=== PATIENT | male | born 1935 | race Caucasian/White ===

== ENCOUNTER → 2017-12-28 | Outpatient (CLI) | payer MEDICARE, OTHER ==
[~2017-12-28] MED LIST: ASP325 PO; ASPI-1471 PO; ASPI-715 PO; AZIT-1 PO; CHOL100058 PO; CIT20 PO; DOCU-299 PO; ERGO500014 PO; ESCI20TA8 PO; KET10 PO; LOR5 PO; LOSA25TA50 PO; MELO-207 PO; MELOXICAM; MET500 PO; METH4TAB66 PO; OMEP-218 PO; PER PO; PHENA200 PO; POTA-35 PO; PSEU30SY PO; SIMV-44 PO; SIMVASTATIN; TERA10CA42 PO; TERA10CA44 PO; TOBR5DRO OP; UBID10CA7 PO; URS300 PO; VIT1CAPS PO; VIT500TA6 PO; VITAMIN B; VITAMIN E; ZOLP-360 PO; [UNRECOGNIZED DRUG - REMARK]; [UNRECOGNIZED DRUG - REMARK]; vitamins
[2017-12-28 13:19] LABS: INR 1.51
== END ==
LOC: LAB 12:09
PROVIDERS: ATTEND Physician Assistant Surgical
DX: Z96.642 Presence of left artificial hip joint (principal); Z79.01 Long term (current) use of anticoagulants
CPT/HCPCS: 36415; 85610

== ENCOUNTER → 2017-12-31 | Outpatient (CLI) | payer MEDICARE, OTHER ==
[2017-12-31 09:28] LABS: INR 1.42
== END ==
LOC: LAB 08:19
PROVIDERS: ATTEND Physician Assistant Surgical
DX: Z79.01 Long term (current) use of anticoagulants (principal); Z96.642 Presence of left artificial hip joint
CPT/HCPCS: 36415; 85610

== ENCOUNTER 2018-09-28 14:47 | Emergency (ER) | payer MEDICARE, OTHER ==
[~2018-09-28 14:47] MED LIST changes: -LOSA25TA50 PO; +LOSA25TA52 PO
[2018-09-28] MEDS ORDERED: AMLO-111 PO (15:04)
[2018-09-28] MEDS ORDERED: NS(*) 0.9% 1000 ML BAG 1,000 ML IV ONE (15:07)
[2018-09-28] MEDS ORDERED: IOPAMIDOL 76% 100 ML INFUS BTL 0 ML ONE (15:30)
[2018-09-28 15:38] LABS: PLATELET COUNT, AUTOMATED 158 K/uL (150-450)
[2018-09-28 15:48] LABS: INR 1.08
--- NOTE | 2018-09-28 16:23 | RADIOLOGY IMAGING REPORT ---
FACILITY: [facility] [place] PATIENT NAME: Garcia Stevens : 1935 MR: [id number] V: [id number] EXAM DATE: ORDERING PHYSICIAN: MICHEAL MAURICIO TECHNOLOGIST: Location: [facility] - [place] Patient: Garcia Stevens : 1935 Visit/Account:[id number] Date of Sevice: 09/28/2018 ABDOMEN/PELVIS W/O CONTRAST HISTORY: HEMATURIA TECHNIQUE: Axial images acquired through the abdomen/pelvis. Coronal and sagittal reformatting also performed. No IV contrast administered.Dose Lowering Technique One of the following dose optimization techniques was utilized in the performance of this exam: Autom ated exposure control; adjustment of the mA and/or kV according to the patient's size; or use of an i terative reconstruction technique. Specific details can be referenced in the facility's radiology C T exam operational policy. COMPARISON: January 04, 2012 FINDINGS: Visualized lung bases: Extensive coronary artery calcifications Hepatobiliary: There are postsurgical changes from a cholecystectomy Spleen: Negative. Adrenals: Negative. Pancreas: Negative. Kidneys ureters and bladder: There is cortical scarring of both kidneys. there is a 6 x 3 mm calcification in the right renal pelvis although no evidence of hydronephrosis o r hydroureter. There is however a 4 x 2 mm calculus in the distal left ureter just proximal to the l eft UVJ area There is a 2 to 3 mm calcification in mid pole calyx of the left kidney a 1 mm punctate calcification in the lower pole calyx of the left kidney there is moderate to severe bladder wall thickening There are numerous artifacts from bilateral hip arthroplasties although a tiny punctate calcification is seen along the posterior aspect left side the bladder could conceivably be a calcification within the bladder wall or a recently passed calculus . Genitalia: Prostate gland is mild to moderately enlarged depending upon the floor the bladder. GI: There Is mild diverticulosis left-sided colon although no CT evidence of acute diverticulitis Vessels/spaces/nodes: There are mild calcifications in the abdominal aorta and branch vessels. Bones/soft tissues: There bilateral hip arthroplasties producing numerous artifacts. There is scoli osis and extensive spondylotic changes in the visualized thoracolumbar spine. There are sclerotic ch anges seen at the SI joints bilaterally although appears similar to the prior study Additional findings: None pertinent. IMPRESSION: There is cortical scarring of both kidneys. There is a 6 x 3 mm calcification in the right renal pelvis although no evidence of hydronephrosis There is a 4 x 2 mm calculus in the distal left ureter just proximal to the left UVJ although no evid ence of left hydronephrosis or hydroureter Nonobstructing nephrolith lithiasis in the left renal collecting system Is a punctate calcination along the posterior left-sided the bladder which could conceivably be a reta cination within the bladder wall or recently passed calculus. There are numerous artifacts in the pe lvis from bilateral hip arthroplasties Additional chronic findings as described Report Dictated By: Shannon Tran MD at 09/28/2018 3:59 PM Report E-Signed By: Shannon Tran MD at 09/28/2018 4:18 PM WSN:[id number]
[2018-09-28 16:30] VITALS: BP 142/81
[2018-09-28] MEDS ORDERED: SULF-198 PO (17:18)
--- NOTE | 2018-09-28 17:18 | ER Report ---
History and Physical Time Seen By MD: 15:45 Hx. of Stated Complaint: BLOOD IN URINE FOR 7-10 DAYS. DENIES PAIN. HPI/ROS CHIEF COMPLAINT: Hematuria painless HISTORY OF PRESENT ILLNESS: 83-year-old male history of kidney stones comes to the emergency room with 2 episodes of bright red blood in painless hematuria patient's he defers episode happened 3 days prior to presentation was urinating and noticed some significant amount of bright red blood per within the urination no pain associated with no flank pain or tenderness patient has had a history of kidney stones no significant flank pain said this felt like that over the next 2 or 3 days a urination became back to normal and clear however today he another episode including bright red blood in painless. Patient denies any nausea vomiting abdominal pain of any kind chest pain shortness of breath or additional complaints noted REVIEW OF SYSTEMS: Respiratory: No cough, no dyspnea. Cardiovascular: No chest pain, no palpitations. Gastrointestinal: No vomiting, no abdominal pain. Musculoskeletal: No back pain. Remainder of the 14 system rev: Yes Allergies: Coded Allergies: No Known Drug Allergies (Verified , 09/28/18) Home Meds Reported Medications Amlodipine Besylate (AMLODIPINE BESYLATE) 5 Mg Tablet, 2 TAB PO QDAY, TAB 09/28/18 Potassium Citrate (POTASSIUM CITRATE) 10 Meq Tablet.er, 2 TAB PO BID 09/11/15 Cholecalciferol (Vitamin D3) (VITAMIN D) 1,000 Unit Capsule, 2 CAP PO QDAY, CAPSULE 09/11/15 Aspirin (ASPIR 81) 81 Mg Tablet.dr, 1 TAB PO QDAY, TAB 09/11/15 Losartan Potassium (LOSARTAN POTASSIUM) 25 Mg Tablet, 1 TAB PO QDAY 09/11/15 Terazosin Hcl (TERAZOSIN HCL) 10 Mg Capsule, 1 CAP PO QHS, CAPSULE 09/11/15 Discontinued Reported Medications Meloxicam (MELOXICAM) 15 Mg Tablet, 1 TAB PO QDAY 09/11/15 Discontinued Scripts Escitalopram Oxalate (ESCITALOPRAM OXALATE) 20 Mg Tablet, 1 TAB PO QDAY, #90 TAB 3 Refills Prov:ROSSY LASSITER MD 01/21/17 Reviewed Nurses Notes: Yes Old Medical Records Reviewed: Yes Hx Smoking: No Smoking Status: Former Smoker Exposure to Second Hand Smoke?: No Hx Substance Use Disorder: No Hx Alcohol Use: No Constitutional Vital Sign - Last 24 Hours 09/28/18 14:55 Temp 97.8 Pulse 85 Resp 20 B/P (MAP) 148/83 Pulse Ox 92 O2 Delivery Room Air Physical Exam General Appearance: The patient is alert, has no immediate need for airway protection and no current signs of toxicity. [ ] Eyes: Pupils equal and round no injection. Respiratory: Chest is non tender, lungs are clear to auscultation. Cardiac: regular rate and rhythm [ ] Gastrointestinal: Abdomen is soft and non tender, no masses, bowel sounds normal. Musculoskeletal: Neck: Neck is supple and non tender. Extremities have full range of motion and are non tender. Skin: No rashes or lesions. [ ] DIFFERENTIAL DIAGNOSIS: After history and physical exam differential diagnosis was considered for pain this hematuria or painless hematuria bladder CA renal colic hemorrhagic cystitis Medical Decision Making Data Points Result Diagram: 09/28/18 1522 09/28/18 1522 Laboratory Hematology Test 09/28/18 14:55 09/28/18 15:22 Urine Color Brown Urine Clarity Turbid Urine pH 5.0 pH (4.8-9.5) Urine Specific [place] 1.016 Urine Protein 100 mg/dL (NEGATIVE) Urine Glucose (UA) Negative mg/dL (NEGATIVE) Urine Ketones Negative mg/dL (NEGATIVE) Urine Blood Large (NEGATIVE) Urine Nitrite Negative (NEGATIVE) Urine Bilirubin Negative (NEGATIVE) Urine Urobilinogen Negative mg/dL (0.2-1.9) Urine Leukocyte Esterase Moderate (NEGATIVE) Urine RBC 4344 /HPF (0-2/HPF) Urine WBC 3036 /HPF (0-5/HPF) Urine WBC Clumps Many /HPF Urine Squamous Epithelial Cells None /LPF (</=FEW) Urine Bacteria Many /HPF (NONE-FEW) Urine Mucus None /HPF (NONE-FEW) Red Blood Count 4.63 M/uL (4.00-5.60) Mean Corpuscular Volume 84.3 fL (80.0-96.0) Mean Corpuscular Hemoglobin 28.6 pg (26.0-33.0) Mean Corpuscular Hemoglobin Concent 33.9 g/dL (32.0-36.0) Red Cell Distribution Width 16.4 % (11.5-14.5) Mean Platelet Volume 8.3 fL (7.2-11.1) Neutrophils (%) (Auto) 61.9 % (39.4-72.5) Lymphocytes (%) (Auto) 23.4 % (17.6-49.6) Monocytes (%) (Auto) 9.0 % (4.1-12.4) Eosinophils (%) (Auto) 5.1 % (0.4-6.7) Basophils (%) (Auto) 0.6 % (0.3-1.4) Nucleated RBC Relative Count (auto) 0.0 /100WBC Neutrophils # (Auto) 3.4 K/uL (2.0-7.4) Lymphocytes # (Auto) 1.3 K/uL (1.3-3.6) Monocytes # (Auto) 0.5 K/uL (0.3-1.0) Eosinophils # (Auto) 0.3 K/uL (0.0-0.5) Basophils # (Auto) 0.0 K/uL (0.0-0.1) Nucleated RBC Absolute Count (auto) 0.00 K/uL Prothrombin Time 14.1 seconds (12.0-14.4) Prothromb Time International Ratio 1.08 Activated Partial Thromboplast Time 28 seconds (23-35) Sodium Level 139 mmol/L (137-145) Potassium Level 4.6 mmol/L (3.5-5.0) Chloride Level 106 mmol/L (98-107) Carbon Dioxide Level 25 mmol/L (22-30) Blood Urea Nitrogen 18 mg/dl (9-21) Creatinine 1.60 mg/dl (0.66-1.25) Glomerular Filtration Rate Calc 41.5 Random Glucose 128 mg/dl (75-110) Calcium Level 9.2 mg/dl (8.4-10.2) Total Bilirubin 0.3 mg/dl (0.2-1.3) Aspartate Amino Transf (AST/SGOT) 33 U/L (0-35) Alanine Aminotransferase (ALT/SGPT) 39 U/L (0-56) Alkaline Phosphatase 86 U/L (0-126) Total Protein 7.0 g/dl (6.3-8.2) Albumin 3.8 g/dl (3.5-5.0) Chemistry Test 09/28/18 14:55 09/28/18 15:22 Urine Color Brown Urine Clarity Turbid Urine pH 5.0 pH (4.8-9.5) Urine Specific [place] 1.016 Urine Protein 100 mg/dL (NEGATIVE) Urine Glucose (UA) Negative mg/dL (NEGATIVE) Urine Ketones Negative mg/dL (NEGATIVE) Urine Blood Large (NEGATIVE) Urine Nitrite Negative (NEGATIVE) Urine Bilirubin Negative (NEGATIVE) Urine Urobilinogen Negative mg/dL (0.2-1.9) Urine Leukocyte Esterase Moderate (NEGATIVE) Urine RBC 4344 /HPF (0-2/HPF) Urine WBC 3036 /HPF (0-5/HPF) Urine WBC Clumps Many /HPF Urine Squamous Epithelial Cells None /LPF (</=FEW) Urine Bacteria Many /HPF (NONE-FEW) Urine Mucus None /HPF (NONE-FEW) White Blood Count 5.5 k/uL (4.5-11.0) Red Blood Count 4.63 M/uL (4.00-5.60) Hemoglobin 13.2 g/dL (14.0-18.0) Hematocrit 39.0 % (42.0-52.0) Mean Corpuscular Volume 84.3 fL (80.0-96.0) Mean Corpuscular Hemoglobin 28.6 pg (26.0-33.0) Mean Corpuscular Hemoglobin Concent 33.9 g/dL (32.0-36.0) Red Cell Distribution Width 16.4 % (11.5-14.5) Platelet Count 158 K/uL (150-450) Mean Platelet Volume 8.3 fL (7.2-11.1) Neutrophils (%) (Auto) 61.9 % (39.4-72.5) Lymphocytes (%) (Auto) 23.4 % (17.6-49.6) Monocytes (%) (Auto) 9.0 % (4.1-12.4) Eosinophils (%) (Auto) 5.1 % (0.4-6.7) Basophils (%) (Auto) 0.6 % (0.3-1.4) Nucleated RBC Relative Count (auto) 0.0 /100WBC Neutrophils # (Auto) 3.4 K/uL (2.0-7.4) Lymphocytes # (Auto) 1.3 K/uL (1.3-3.6) Monocytes # (Auto) 0.5 K/uL (0.3-1.0) Eosinophils # (Auto) 0.3 K/uL (0.0-0.5) Basophils # (Auto) 0.0 K/uL (0.0-0.1) Nucleated RBC Absolute Count (auto) 0.00 K/uL Prothrombin Time 14.1 seconds (12.0-14.4) Prothromb Time International Ratio 1.08 Activated Partial Thromboplast Time 28 seconds (23-35) Glomerular Filtration Rate Calc 41.5 Calcium Level 9.2 mg/dl (8.4-10.2) Total Bilirubin 0.3 mg/dl (0.2-1.3) Aspartate Amino Transf (AST/SGOT) 33 U/L (0-35) Alanine Aminotransferase (ALT/SGPT) 39 U/L (0-56) Alkaline Phosphatase 86 U/L (0-126) Total Protein 7.0 g/dl (6.3-8.2) Albumin 3.8 g/dl (3.5-5.0) Coagulation Test 09/28/18 15:22 Prothrombin Time 14.1 seconds Prothromb Time International Ratio 1.08 Activated Partial Thromboplast Time 28 seconds Urinalysis Test 09/28/18 14:55 Urine Color Brown Urine Clarity Turbid Urine pH 5.0 pH (4.8-9.5) Urine Specific [place] 1.016 Urine Protein 100 mg/dL (NEGATIVE) Urine Glucose (UA) Negative mg/dL (NEGATIVE) Urine Ketones Negative mg/dL (NEGATIVE) Urine Blood Large (NEGATIVE) Urine Nitrite Negative (NEGATIVE) Urine Bilirubin Negative (NEGATIVE) Urine Urobilinogen Negative mg/dL (0.2-1.9) Urine Leukocyte Esterase Moderate (NEGATIVE) Urine RBC 4344 /HPF (0-2/HPF) Urine WBC 3036 /HPF (0-5/HPF) Urine WBC Clumps Many /HPF Urine Squamous Epithelial Cells None /LPF (</=FEW) Urine Bacteria Many /HPF (NONE-FEW) Urine Mucus None /HPF (NONE-FEW) ED Course/Re-evaluation ED Course ED clinical course medical decision making 83-year-old male came in with 2 episodes in the last 4 days of painless hematuria CT scan does show significant bladder wall thickening concerning for probable CVA versus irritation and cystitis patient did add no episodes of hematuria here ovary did have urination showing bright red blood but inconsistent with his prior episodes significantly less prevalent spoke to Dr. Weinberg our urologist CT scan results were confirmed and evaluated he wants him placed on antibiotics with close follow-up and he'll see patient at bedside Decision to Disposition Date: Sep 28, 2018 Decision to Disposition Time: 17:17 Depart Departure Latest Vital Signs Vital Signs Date Time Temp Pulse Resp B/P (MAP) Pulse Ox O2 Delivery O2 Flow Rate FiO2 09/28/18 14:55 97.8 85 20 148/83 92 Room Air Impression: Primary Impression: Hemorrhagic cystitis Condition: Improved Disposition: HOME OR SELF-CARE Referrals: JA WEINBERG MD 5 Days New Scripts Sulfamethoxazole/Trimet 800-160 Mg Tab (BACTRIM DS TABLET) 1 Each Tablet 1 TAB PO Q12H, #14 MG 0 Refills TAKE ONE TABLET BY MOUTH EVERY TWELVE HOURS Prov: MICHEAL MAURICIO MD 09/28/18 Patient Instructions: Hematuria (ED) MICHEAL MAURICIO MD Sep 28, 2018 17:18
== END 2018-09-28 17:31 | disposition home or self-care (01) ==
LOC: ER 15:22
DX: N30.81 Other cystitis with hematuria (principal); B95.2 Enterococcus as the cause of diseases classified elsewhere; B96.89 Other specified bacterial agents as the cause of diseases classified elsewhere
CPT/HCPCS: 74176; 81001; 85025; 85610; 85730; 87088; 96360; 96361; 99284; J7030; 82040; 82247; 82310; 82374; 82435; 82565; 82947; 84075; 84132; 84155; 84295; 84450; 84460; 84520; 87077; 87186; Q9967

== ENCOUNTER 2018-12-19 01:45 | Day surgery (SDC) | payer MEDICARE, OTHER ==
[2018-12-15 14:55] LABS: PLATELET COUNT, AUTOMATED 171 K/uL (150-450)
--- NOTE | 2018-12-16 17:13 | HISTORY AND PHYSICAL ---
DATE OF ADMISSION: December 19, 2018 CHIEF COMPLAINT Kidney stones with history of hematuria and UTI. HISTORY OF PRESENT ILLNESS Patient is an 83-year-old white male with a remote history of kidney stones and BPH who presented to the Emergency Room in early September after an episode of gross, painless hematuria. He was diagnosed with cystitis after a urine culture revealed greater than 100,000 enterococcus. He was subsequently treated with Macrobid after a week of Cipro. He was seen in the Urology Clinic on the 29 of September. At that time, his urinalysis revealed a large amount of blood. His CAT which was performed without intravenous contrast was reviewed. He had a 6 x 4 mm right renal pelvis stone in addition to having a 3 x 2 mm left mid pole stone and a 4 x 2 mm stone in the distal left ureter. He had some mild hydronephrosis on the left side and a few punctate calcifications in the bladder. At that time, results were discussed, and it was recommended he undergo left ureteroscopy with possible stent placement, followed by ureteroscopy and/or extracorporeal shock wave lithotripsy of his upper pole stones. The patient has recently completed his preoperative medical optimization at the [facility] and now being scheduled for surgery. We will obtain the preoperative low-dose CT scan to evaluate his current stone status and proceed with cystoscopy, left ureteroscopy, and/or extracorporeal shock wave lithotripsy as indicated. PAST MEDICAL HISTORY 1. Hypertension. 2. Hypercholesterolemia. 3. Questionable history of coronary artery disease. 4. COPD. 5. Prediabetes. 6. Glaucoma. 7. Hard of hearing. 8. Kidney and bladder stones. 9. BPH with history of elevated PSA. Last biopsy was 2009 with a volume of 39 cc. PAST SURGICAL HISTORY 1. Cystoscopy with evacuation of small bladder stones and transurethral resection of median lobe in 2003. 2. Cystoscopy with evacuation of bladder clots with a TURP in 2007. 3. Office cystoscopy 2009, which revealed some mild regrowth of his lateral lobes. 4. Bilateral cataracts. 5. Right inguinal hernia. 6. Bilateral total hip replacement. SOCIAL HISTORY Patient lives in [place], [place]. He is . He denies current tobacco use. ALLERGIES LISINOPRIL. CURRENT MEDICINES 1. Amlodipine. 2. Aspirin. 3. Lexapro. 4. Isosorbide p.r.n. 5. Losartan. 6. Flomax. 7. Lipitor. REVIEW OF SYSTEMS Patient denies chest pain, shortness of breath, productive cough, nausea, vomiting, fever, chills, headaches, or a bleeding disorder. PHYSICAL EXAMINATION GENERAL: Patient is a well-developed, well-nourished white male in no acute distress. HEENT: Normocephalic, atraumatic. CHEST: Clear to auscultation bilaterally. CARDIOVASCULAR: Regular rate and rhythm. ABDOMINAL: Soft, nontender. No masses are palpated. GENITOURINARY: Deferred to the OR. EXTREMITIES: Without clubbing, cyanosis, or edema. NEUROLOGIC: Nonfocal. IMPRESSION An 83-year-old white male with history of gross hematuria and urinary tract infection in early September, found to have bilateral kidney stones and left ureteral calculus. CT [facility] this morning shows no change in renal stones, however I am unable to evaluate distal left ureteral sotne secondary to artifact from bilateral THR's. PLAN Will perform anesthetic cystoscopy, followed by left ureteroscopy and/or extracorporeal shock wave lithotripsy as indicated. FRANKIED
[~2018-12-19] VITALS: Ht 170.2 cm; Wt 78.5 kg
[~2018-12-19 01:45] MED LIST changes: +AMLO-125 PO; +ATOR20TA22 PO; +ESCI20TA38 PO; +ISOS30TA71 PO; +LOSA100T75 PO; -LOSA25TA52 PO; +LOSA25TA57 PO; +SULF-198 PO; +TAMS0.4C70 PO
[2018-12-19 06:00] VITALS: BP 125/80
[2018-12-19] MEDS ORDERED: LIDOCAINE/SOD BICARB 8.4% SYR ID ONE (06:30)
[2018-12-19] MEDS ORDERED: ceFAZolin(*) 1 GM VIAL 1 GM in NS(*) 0.9% 100 ML ADDVANT BAG 100 ML IVPB ONE (06:30)
[2018-12-19] MEDS ORDERED: FAMOTIDINE 20 MG TAB PO ONE (06:30)
[2018-12-19] MEDS ORDERED: MIDAZOLAM 2 MG/2 ML VIAL IVP PRN (06:30)
[2018-12-19] MEDS ORDERED: NORMOSOL R SOLN(*) 1000 ML BAG 1,000 ML IV PRN (06:30)
--- NOTE | 2018-12-19 06:38 | EKG ---
FACILITY: [facility] PATIENT NAME: MARIA D BARKSDALE : [id number] MR: [id number] V: [id number] EXAM DATE: ORDERING PHYSICIAN: NAOMI DANIELS TECHNOLOGIST: BECKI Test Reason : PRE-OP Blood Pressure : / mmHG Vent. Rate : 060 BPM Atrial Rate : 060 BPM P-R Int : 254 ms QRS Dur : 086 ms QT Int : 414 ms P-R-T Axes : 097 053 062 degrees QTc Int : 414 ms Sinus rhythm with marked sinus arrhythmia with 1st degree AV block Otherwise normal ECG No previous ECGs available Confirmed by Kb Nelson ([id number]) on 12/19/2018 6:46:12 AM Referred By: Confirmed By:Kb Boyer
[2018-12-19] MEDS ORDERED: fentaNYL CITR 100 MCG/2 ML AMP ONE ×2 (07:17→08:42)
[2018-12-19] MEDS ORDERED: LIDOCAINE 2% IV 100 MG/5ML SYR ONE (07:18)
[2018-12-19] MEDS ORDERED: PROPOFOL EMUL(*) 10MG/ML 20 ML 60 ML ONE (07:19)
[2018-12-19] MEDS ORDERED: DEXAMETHASONE SOD 4 MG/ML VIAL ONE (07:41)
[2018-12-19] MEDS ORDERED: ONDANSETRON 4 MG/2 ML VIAL ONE (07:42)
[2018-12-19] MEDS ORDERED: IOPAMIDOL-200 50 ML VIAL IS ONE (07:53)
[2018-12-19] MEDS ORDERED: BELLADONNA ALK/OPIUM 60MG SUPP PR ONE (07:53)
--- NOTE | 2018-12-19 08:50 | RADIOLOGY IMAGING REPORT ---
FACILITY: [facility] - [place] PATIENT NAME: Garcia Stevens : 1935 MR: [id number] V: [id number] EXAM DATE: ORDERING PHYSICIAN: JA WEINBERG TECHNOLOGIST: Location: [facility] [place] Patient: Garcia Stevens : 1935 Visit/Account:[id number] Date of Sevice: 12/16/2018 ABDOMEN PELVIS ESWL CYSTO W/O HISTORY: Kidney stones TECHNIQUE: Axial images were obtained through the abdomen and pelvis without intravenous contrast . One of the following dose optimization techniques was utilized in the performance of this exam: autom ated exposure control; adjustment of the mA and/or kv according to patient size; or use of iterative reconstruction technique. Specific details can be referenced in the facility's radiology CT exam oper ational policy. CONTRAST: None COMPARISON: CT abdomen/pelvis without contrast 09/28/2018 FINDINGS: Visualized lung bases: Negative. Hepatobiliary: Cholecystectomy.. Spleen: Negative. Adrenals: Negative. Pancreas: Negative. Kidneys/ureters/bladder: Stable 5 x 2 mm distal left ureteral calculus near the vesicoureteral junct ion. No significant hydronephrosis/hydroureter. Stable 2 mm nonobstructing left midpole renal calcu roberta. Stable 7 x 3 mm nonobstructing right lower pole calculus. Bilateral renal scarring. Bowel/peritoneum/mesentery: Colonic diverticulosis without acute inflammatory change. Vessels: Negative. Lymph nodes: Negative. Pelvic genitourinary: Negative. Bones/body wall: Bilateral TYREE with artifact. Moderate-severe degenerative changes throughout the l umbar spine. Other findings: None significant IMPRESSION: 1. Stable 5 x 2 mm distal left ureteral calculus near the vesicoureteral junction. No significant h ydronephrosis/hydroureter. 2. Otherwise stable nonobstructing bilateral renal calculi outlined above. Report Dictated By: Beau Loo MD at 12/19/2018 8:35 AM Report E-Signed By: Beau Loo MD at 12/19/2018 8:46 AM WSN:[id number]
[2018-12-19] MEDS ORDERED: DOCU-416 PO (10:07)
[2018-12-19] MEDS ORDERED: HYDR-653 PO (10:08)
[2018-12-19] MEDS ORDERED: OXYB10TA21 PO (10:10)
[2018-12-19] MEDS ORDERED: PHEN200T32 PO (10:10)
[2018-12-19 10:37] VITALS: BP 126/66
[2018-12-19 10:45] VITALS: BP 120/75
[2018-12-19 11:15] VITALS: BP 113/73
[2018-12-19 11:21] VITALS: BP 119/62
[2018-12-19 11:23] VITALS: BP 126/69
--- NOTE | 2018-12-19 11:33 | OPERATIVE REPORT 1 ---
EVENT DATE: December 19, 2018 SURGEON: Arvin Grey MD ANESTHESIOLOGIST: Jose M Perez MD ANESTHESIA: General. PREOPERATIVE DIAGNOSIS 1. Left distal ureteral calculus, measuring 6 x 3 mm. 2. Left mid pole renal calculus, measuring 3 x 2 mm. POSTOPERATIVE DIAGNOSIS 1. Left distal ureteral calculus, measuring 6 x 3 mm. 2. Left mid pole renal calculus, measuring 3 x 2 mm. PROCEDURE PERFORMED 1. Cystoscopy. 2. Left retrograde pyelograms. 3. Left semi-rigid ureteroscopy with laser fragmentation and grasping of fragments of the 6 x 3 mm distal ureteral stone. 4. Left flexible ureteroscopy with grasping and removal of a 3 x 2 mid pole stone. 5. Left internal double- J ureteral stent placement. ESTIMATED BLOOD LOSS 10 cc. IV FLUIDS Crystalloids. DRAINS 6-Peruvian x 26 cm Contour stent on left. PATHOLOGY Left mid pole calculus for permanent analysis. COMPLICATIONS None. FINDINGS 1. 6 x 3 mm distal stone, approximately 5 cm of proximal ureteral orifice. 2. Left mid pole 3 x 2 mm stone in a mid pole calyx with a moderately stenotic infundibulum. CONDITION The patient was taken to the recovery room awake and in stable condition. STATEMENT OF MEDICAL NECESSITY The patient is an 83-year old white male with intermittent hematuria who was found to have kidney stones by CT scan performed at the end of September. He was scheduled for the operating room after he was evaluated for preoperative optimization. CT scan today revealed an 8 x 6 x 4 mm stone on the right mid pole. In addition, he had a 3 x 2 mm stone in the left mid pole. He has a distal left ureteral stone that could not be identified today on his preoperative CT secondary to artifact from his bilateral hip replacement but he denies definitively passing the stone. The plan will be to perform anesthetic cystoscopy retrograde on the left side followed by treatment. DESCRIPTION OF OPERATION PERFORMED The patient was brought to the operating room and after general anesthetic was obtained, he was placed in the dorsal lithotomy position and prepped and draped in the usual sterile manner. Anesthetic cystoscopy was performed with the 21- Peruvian rigid sheath and both 30-degree and 70-degree lens. His bladder neck was mildly elevated and he had mildly obstructing lateral lobes. Upon entering his bladder, he had a 1+ trabeculated bladder. He had slit-like ureteral orifices, both effluxing clear urine. His bladder neck was mildly friable, mainly on the right side. The remainder of the bladder appeared normal. At this point, a left retrograde pyelogram was performed by using an 8-Peruvian cone-tip catheter and injecting 7 cc of contrast material in a retrograde manner under fluoroscopic imaging. By my intraoperative interpretation, he appeared to have a normal retrograde pyelogram on the left side except for questionable filling defect in the distal ureter, approximately 4-5 cm above the ureteral orifice. At this point, the left ureteral orifice was cannulated with a 6-Peruvian open-end access catheter and this was used to place a 0.35 sensor wire, which was advanced to the upper pole of lea by fluoroscopy. The access catheter was removed and this wire was used to place a 8/10 dilating system. A single wire was placed alongside the first wire inside the 10 sheath. The 10 sheath was removed. One wire was secured to the drape as a safety wire and the next wire was back-loaded into the Hearn semi-rigid scope. Semi-rigid ureteroscopy was performed over this wire under direct vision. A regular surface, dark yellow to brown stone was encountered approximately 5 cm above the ureteral orifice measuring 6 x 3 mm. At this point, the Holmium laser fiber was introduced and in situ laser lithotripsy was performed. The stone impregnated fairly easily over the course of approximately 10-15 minutes. There were two to three small remaining fragments measuring approximately 1 x 2 mm. These were sequentially grasped with the grasping forceps and brought out to the bladder, where they were disengaged. At this point, the scope was reintroduced and advanced to just above the vessels. No other fragments could be identified down to the distal ureter. At this point, a 0.35 wire was reintroduced into the lumen of the ureteroscope and advanced up to the upper pole of calyx to be used as a working wire. The semi-rigid ureteroscope was removed and this was replaced with a TuckerNucker Hearn flexible ureteroscope, which was advanced over the wire up the ureter to the upper pole of calyx. The working wire was removed. Flexible ureteroscopy of the left kidney was performed. The upper pole of calyx appeared normal without evidence of stones. In the mid pole, there was a moderately stenotic infundibulum and at the bottom of this was the previously seen stone on his prior x-rays. It was approximately 3 x 2 mm in size. At this point, the 8- Peruvian Otf basket was used to engage the stone. It was removed intact and gently brought down the ureter into the bladder and out the urethra. It was then collected and sent for analysis. Following this, the safety wire was back- loaded into the cystoscope and this was used to place a 6-Peruvian x 26 cm Contour stent on the left side. The wire was removed. He was noted to have good curling of the upper pole of calyx and good curling of the bladder by direct vision. The patient's bladder was drained through the cystoscopic sheath. A B and O suppository was given at the conclusion of the case. He was awakened in the operating room and taken to the recovery area in stable condition. PLAN We will allow the patient to be discharged home today on [place], Colace, Ditropan XL and Pyridium. He is to continue his Flomax. We will have him return to the operating room in approximately ten days to two weeks to remove his stent and treat his right stone. KIERSTEN
--- NOTE | 2018-12-19 13:49 | RADIOLOGY IMAGING REPORT ---
FACILITY: [facility] - [place], [place] PATIENT NAME: Garcia Stevens : 1935 MR: [id number] V: [id number] EXAM DATE: ORDERING PHYSICIAN: JA WEINBERG TECHNOLOGIST: Location: [facility] Patient: Garcia Stevens : 1935 Visit/Account:[id number] Date of Sevice: 12/19/2018 RETROGRADE PYELOGRAM HISTORY: STONES, HEMATURIA COMPARISON: None. FINDINGS: Serial fluoroscopic imaging demonstrates a left retrograde ureterogram followed by placement of a lef t ureteral stent which appears well-positioned within the known nephrolithiasis is not well visualize d Fluoroscopy time: 49 seconds Dose: DAP: 39.5 mGy-m2 IMPRESSION: Fluoroscopic guidance of a left ureteral stent. The known distal left ureteral stone in bilateral ne phrolithiasis is not well visualized fluoroscopically Report Dictated By: Blade De La Rosa MD at 12/19/2018 1:38 PM Report E-Signed By: Blade De La Rosa MD at 12/19/2018 1:44 PM WSN:[id number]
== END 2018-12-19 10:37 | disposition home or self-care (01) ==
LOC: OR 01:45
PROVIDERS: ATTEND Urology
DX: N20.2 Calculus of kidney with calculus of ureter (principal); I44.0 Atrioventricular block, first degree; I10 Essential (primary) hypertension; E78.00 Pure hypercholesterolemia, unspecified; R73.03 Prediabetes; N40.0 Benign prostatic hyperplasia without lower urinary tract symptoms
CPT/HCPCS: 36415; 52332; 52352; 74176; 74420; 81001; 82365; 84153; 85025; 87088; 88300; 93005; A9270; J0690; J1100; J2001; J2704; J3010; J7050; Q9966; 82040; 82247; 82310; 82374; 82435; 82565; 82947; 84075; 84132; 84155; 84295; 84450; 84460; 84520; C1758; C1769; C2617; J2405

== ENCOUNTER 2018-12-29 01:34 | Inpatient (IN) | payer MEDICARE, OTHER ==
--- NOTE | 2018-12-28 13:36 | HISTORY AND PHYSICAL ---
DATE OF HISTORY AND PHYSICAL: December 29, 2018 CHIEF COMPLAINT Kidney stones. HISTORY OF PRESENT ILLNESS Patient is an 83-year old white male who recently had an episode of enterococcus UTI in September. He subsequently had a CAT scan that showed a 6 x 4 mm right renal pelvic stone in addition to having a 3 x 2 mm left mid pole stone and a 4 x 2 mm distal left ureteral calculus. He was subsequently taken to the operating room on December 19 and underwent left ureteroscopy and had fragmentation of his left distal stone and grasping and removal of the right mid pole calculus. He was left with a 6 x 26 cm Contour stent on the left side. He is now being returned to the operating room for cystoscopy with stent removal on the left followed by extracorporeal shock wave lithotripsy of the 8 x 6 x 4 mm stone in the right mid pole. PAST MEDICAL HISTORY 1. Hypertension. 2. Hypercholesterolemia. 3. COPD. 4. Pre-diabetes. 5. Glaucoma. 6. Questionable coronary artery disease. 7. Hard of hearing. 8. Kidney and bladder stones. 9. Elevated PSA with history of BPH. PAST SURGICAL HISTORY 1. Bilateral total hip replacement. 2. Right inguinal hernia repair. 3. Bilateral cataracts. 4. Cystoscopy with evacuation of bladder stones and transurethral resection of the median lobe, 2003. 5. Cystoscopy with evacuation of bladder clots and TUR in 2007. SOCIAL HISTORY Patient is and lives in [place], [place]. He denies tobacco use. ALLERGIES LISINOPRIL. CURRENT MEDICATIONS 1. Amlodipine. 2. Aspirin. 3. Lexapro. 4. Losartan. 5. Flomax. 6. Lipitor. 7. Isosorbide on p.r.n. basis. 8. [place]. 9. Colace. 10. Ditropan XL. 11. Pyridium. REVIEW OF SYSTEMS Patient denies chest pain, productive cough, shortness of breath, fever, chills, bleeding disorder, chronic headaches or liver disease. PHYSICAL EXAMINATION GENERAL: Patient is a well-developed, well-nourished white male in no acute distress. HEENT: Normocephalic, atraumatic. CHEST: Clear to auscultation bilaterally. CV: Regular rate and rhythm. ABDOMEN: Soft, nontender. No masses palpated. : Deferred to OR. EXTREMITIES: Without clubbing, cyanosis or edema. NEUROLOGICAL: Nonfocal. IMPRESSION 83-year old white male status post left ureteroscopy with fragmentation of distal ureteral stone and grasping and removing of left mid pole stone with placement of the stent approximately two weeks ago. He continues to have his right renal pelvic stone, measuring approximately 8 x 6 x 4 mm. PLAN We will perform right extracorporeal shock wave lithotripsy followed by left stent removal with cystoscopy. MTDD
[~2018-12-29] VITALS: Ht 170.2 cm; Wt 79.5 kg
[2018-12-29] VITALS (10 sets, daily range): BP systolic 112–148; BP diastolic 66–85
[~2018-12-29 01:34] MED LIST changes: +DOCU-416 PO; +HYDR-653 PO; +OXYB10TA21 PO; +PHEN200T32 PO
[2018-12-29] MEDS ORDERED: IOPAMIDOL-200 50 ML VIAL IS ONE (07:19)
[2018-12-29] MEDS ORDERED: fentaNYL CITR 100 MCG/2 ML AMP ONE (07:34)
[2018-12-29] MEDS ORDERED: ONDANSETRON 4 MG/2 ML VIAL ONE (07:38)
[2018-12-29] MEDS ORDERED: LIDOCAINE MPF 1% 5 ML VIAL ONE (07:38)
[2018-12-29] MEDS ORDERED: PROPOFOL EMUL(*) 10MG/ML 20 ML 60 ML ONE (07:38)
[2018-12-29] MEDS ORDERED: DEXAMETHASONE SOD 4 MG/ML VIAL ONE (07:45)
--- NOTE | 2018-12-29 08:04 | RADIOLOGY IMAGING REPORT ---
FAC[place] [facility] [place]IENT NAME: Garcia Stevens : 1935 MR: [id number] V: [id number] EXAM DATE: ORDERING PHYSICIAN: JA WEINBERG TECHNOLOGIST: Location: [facility] Patient: Garcia Stevens : 1935 Visit/Account:[id number] Date of Sevice: 12/28/2018 Abdomen: Indication: Left ureteral stent. Technique: A single supine view was obtained. Comparison: OR images dated 12/19/2018. Findings: A left ureteral stent remains in satisfactory orientation. No suspicious calcifications are identified. The intestinal gas pattern is unremarkable. Surgical clips are present in the right upper quadrant, c onsistent with prior cholecystectomy. There are marked degenerative changes in the lumbar spine. Bilateral prostheses appear unremarkable. IMPRESSION: The left ureteral stent remains in satisfactory orientation. No suspicious calcifications are identified. Report Dictated By: Ed Land MD at 12/29/2018 7:57 AM Report E-Signed By: Ed Land MD at 12/29/2018 8:00 AM WSN:[id number]
--- NOTE | 2018-12-29 09:41 | OPERATIVE REPORT 1 ---
EVENT DATE: December 29, 2018 SURGEON: Arvin Grey MD ANESTHESIOLOGIST: Jacques España MD ANESTHESIA: General. PREOPERATIVE DIAGNOSES 1. Right mid pole renal calculus measuring 8 x 6 mm. 2. Left indwelling ureteral stent. POSTOPERATIVE DIAGNOSIS 1. Right mid pole renal calculus measuring 8 x 6 mm. 2. Left indwelling ureteral stent. PROCEDURE PERFORMED Right extracorporeal shock wave lithotripsy. ESTIMATED BLOOD LOSS Minimal. IV FLUIDS Crystalloids. DRAINS None. COMPLICATIONS Brief 30-second episode of asystole requiring early termination of procedure. CONDITION Patient taken to recovery room awake in stable condition. STATEMENT OF MEDICAL NECESSITY Patient is an 83-year old white male who is noted to have a history of kidney stones. Approximately two weeks ago he was taken to the operating room and underwent left ureteroscopy with removal of distal ureteral stone as well as a left mid pole stone. He was left with a left ureteral stent. He is now being returned to the operating room to remove the left ureteral stent and treat his right mid pole 8 mm x 6 mm stone. DESCRIPTION OF PROCEDURE Patient was brought to the operating room. After general anesthetic was obtained, he was placed supine on the lithotripsy gantry. Two plane fluoroscopy was used to place the lithotripsy cross-hairs on his stone in the right mid pole. Treatment was begun at a power setting of 2 and gradually increased to a power setting of 3 over the course of the first 300 shocks. A three-minute pause was then performed and treatment resumed and gradually increased to a power setting of 7.5 over the course of the first 1,500 shocks. Two-plane fluoroscopy was used to ensure the cross-hairs remained on the stone and subfragment pile. Fragmentation was first noted at approximately 1,000 shocks. At approximately 2,100 shocks, Anesthesia noted a brief episode of complete asystole for approximately 30 seconds. Epinephrine was given intravenously and his pulse returned and he was otherwise hemodynamically stable. It was decided to terminate the procedure at this point and to admit the patient to the hospitalist service for cardiac evaluation. Therefore, the patient was slowly awakened in the operating room and taken to the recovery area in stable condition hemodynamically. He will be evaluated by the hospitalist service and admitted for observation. As far as his kidney stone treatment, it appeared he more than likely had adequate fragmentation of his stone. We will plan to remove his stent in the office in the near future after his cardiac workup is complete. KIERSTEN
[2018-12-29] MEDS ORDERED: MIDAZOLAM 2 MG/2 ML VIAL IVP PRN (10:05)
[2018-12-29] MEDS ORDERED: LIDOCAINE/SOD BICARB 8.4% SYR ID ONE (10:05)
[2018-12-29] MEDS ORDERED: ceFAZolin(*) 1 GM VIAL 1 GM in NS(*) 0.9% 100 ML ADDVANT BAG 100 ML IVPB ONE (10:05)
[2018-12-29] MEDS ORDERED: FAMOTIDINE 20 MG TAB PO ONE (10:05)
[2018-12-29] MEDS ORDERED: NORMOSOL R SOLN(*) 1000 ML BAG 1,000 ML IV PRN (10:05)
[2018-12-29] MEDS ORDERED: FLUSH 10 ML SYR IVP PRN (12:20)
[2018-12-29] MEDS ORDERED: ACETAMINOPHEN 325 MG TAB PO PRN (12:20)
[2018-12-29] MEDS ORDERED: amLODIPine BESYL(*) 2.5 MG TAB PO SCH (12:25)
[2018-12-29] MEDS ORDERED: APAP/HYDROCODONE 325/5 TAB PO PRN (12:25)
--- NOTE | 2018-12-29 16:41 | History & Physical ---
History of Present Illness Chief Complaint cardiac arrest History of Present Illness 83M presented after cardiac arrest during outpatient lithotripsy. PMHx significant for HTN, CKD. Patient had episode of bradycardia followed by up to 30 seconds asystole. Was given 1mg epi with ROSC, no compressions and patient had no ill effects after awakening in OR or in PACU. Admitted for further evaluation and monitoring. Patient and do report he had episode in when young of heart stopping briefly during surgery for hernia. History Problems: (1) Hyperlipidemia Status: Chronic (2) Nephrolithiasis Status: Chronic (3) BPH (benign prostatic hyperplasia) Status: Chronic (4) Coronary artery calcification seen on CAT scan Status: Chronic Home Meds Reported Medications Phenazopyridine Hcl (PHENAZOPYRIDINE HCL) 200 Mg Tablet, 200 MG PO TID PRN for DISCOMFORT, #30 TAB 12/19/18 Oxybutynin Chloride (DITROPAN XL) 10 Mg Tab.er.24, 10 MG PO QDAY PRN for BLADDER SPASMS, #20 TAB 12/19/18 Hydrocodone Bit/Acetaminophen (NORCO 5-325 TABLET) 1 Each Tablet, 1-2 TAB PO Q6H PRN for PAIN, #30 TAB 12/19/18 Docusate Sodium (COLACE) 100 Mg Capsule, 100 MG PO BID, #30 CAPSULE 12/19/18 Isosorbide Dinitrate (ISOSORBIDE DINITRATE) 30 Mg Tablet, 30 MG PO QAM 12/16/18 Escitalopram Oxalate (LEXAPRO) 20 Mg Tablet, 20 MG PO QAM, TAB 12/16/18 Atorvastatin Calcium (LIPITOR) 20 Mg Tablet, 1 TAB PO HS, TAB 12/16/18 Tamsulosin Hcl (TAMSULOSIN HCL) 0.4 Mg Cap.er.24h, 0.4 MG PO HS, CAP 12/16/18 Losartan Potassium (LOSARTAN POTASSIUM) 100 Mg Tablet, 100 MG PO HS 12/16/18 Amlodipine Besylate (AMLODIPINE BESYLATE) 5 Mg Tablet, 2.5 MG PO NOON, TAB 09/28/18 Aspirin (ASPIR 81) 81 Mg Tablet.dr, 1 TAB PO QDAY, TAB 09/11/15 Allergies: Coded Allergies: lisinopril (Verified Allergy, Mild, COUGH, 12/15/18) Patient History: Anxiety disorder MOTHER, , Age:83 FH: NV (myocardial infarction) FATHER, , Age:84 FH: depression MOTHER, , Age:83 FH: hyperlipidemia FATHER, , Age:84 FH: liver cancer MOTHER, , Age:83 Hx Smoking: Yes (SMOKED 1PPD FOR 14 YRS, QUIT 1965) Smoking Status: Former Smoker Exposure to Second Hand Smoke?: No Caffeine Intake: Soda Caffeine/Cups Per Day: 1-2 BOTTLES / DAY Hx Alcohol Use: Yes Hx Substance Use Disorder: No Social Drug Use: Never Review of Systems All Systems Reviewed/Normal: Yes, Except as Noted Neurological: No Syncope, No Weakness, No Dizziness Cardiovascular: No Chest Pain, No Palpitations Respiratory: No Shortness of Breath, No Cough Exam Vital Signs Vital Signs Date Time Temp Pulse Resp B/P (MAP) Pulse Ox O2 Delivery O2 Flow Rate FiO2 12/29/18 14:18 78 12/29/18 14:00 7 95 12/29/18 13:53 Nasal Cannula 5.0 12/29/18 13:00 134/83 (100) 12/29/18 12:30 98.0 General Appearance: Alert, Awake, No Acute Distress, Afebrile Neuro: No Gross deficits Cardiovascular: Normal Rhythm & Peripheral Pulses Respiratory: No Respiratory Distress GI: Abd Soft and Non-Tender Musculoskeletal: No Weakness/Pain Extremities: Soft and Non Tender, Warm, Pulses, Perfused; No Edema Medical Decision Making Data Points Result Diagram: 12/29/18 0906 EKG / Imaging EKG Interpretation NSR with 1st degree av block, prolonged QTC. Monitor Interpretation: Normal Sinus Rhythm Assessment and Plan Problems: (1) Cardiac arrest Assessment & Plan: EKG shows NSR with 1st degree AV block, prolonged QTC. He did receive ondansetron and was on chronic escitalopram both of which could exacerbate. Telemetry reveals episodes of asymptomatic bradycardia into high 40- low 50's. Denies any symptoms at any time related to hypotension or poor perfusion. Suspect that anesthesia and QT prolonging medications led to sinus pause and no escape beat occurred before SA node again re-paced heart. Given occurrence only in surgery with no symptoms recommend outpatient follow up with cardiology. Venous Thromboembolism Antithrombotics Is Pt On Any Antithrombotics?: Yes Exam Sepsis Risk: No Definite Risk CASIANO PATRICA CHEEMA DO Dec 29, 2018 16:41
[2018-12-29] MEDS ORDERED: FINA5TAB67 PO (20:20)
[2018-12-29] MEDS ORDERED: LATA2.5D7 OU (20:20)
[2018-12-29] MEDS ORDERED: TRAZ100T31 PO (20:20)
[2018-12-29] MEDS ORDERED: DULO20CA3 PO (20:20)
[2018-12-29] MEDS ORDERED: AMLO2.5T78 PO (20:20)
[2018-12-29] MEDS ORDERED: NITR0.4T3 PO (20:20)
[2018-12-29] MEDS ORDERED: DICL100G7 TOP (20:20)
[2018-12-29] MEDS ORDERED: ASPI-757 PO (20:20)
[2018-12-29] MEDS ORDERED: MELO-207 PO (20:20)
[2018-12-29] MEDS ORDERED: ISOS30TA54 PO (20:20)
[2018-12-29] MEDS ORDERED: ATORVASTATIN 10 MG TAB PO SCH (21:00)
[2018-12-29] MEDS ORDERED: TAMSULOSIN HCL 0.4 MG CAP PO SCH (21:00)
[2018-12-29] MEDS: DOCUSATE SODIUM 100 MG CAP PO SCH (21:12)
[2018-12-30 04:00] VITALS: BP 130/74
[2018-12-30 05:40] LABS: PLATELET COUNT, AUTOMATED 136 K/uL (150-450)
[2018-12-30 08:50] VITALS: BP 124/61
[2018-12-30] MEDS ORDERED: ENOXAPARIN 30 MG/0.3 ML SYR SC SCH (09:00)
[2018-12-30] MEDS ORDERED: ESCITALOPRAM OXALATE 10 MG TAB PO SCH (09:00)
[2018-12-30] MEDS ORDERED: ASPIRIN 81 MG ENTERIC COATED PO SCH (09:00)
[2018-12-30] MEDS ORDERED: ISOSORBIDE MONONITR 30MG TABCR PO SCH (09:00)
[2018-12-30] MEDS ORDERED: OXYBUTYNIN CHL XL 5 MG TABCR PO SCH (09:00)
[2018-12-30] MEDS ORDERED: LOSARTAN POTASSIUM 50 MG TAB PO SCH (09:00)
[2018-12-30] MEDS: DOCUSATE SODIUM 100 MG CAP PO SCH (09:02)
--- NOTE | 2018-12-30 10:00 | Hospitalist Depart ---
Discharge Summary Reason for Hosp/Final Diag: (1) Cardiac arrest Hospital Course & Plan: EKG shows NSR with 1st degree AV block, prolonged QTC. He did receive ondansetron and was on chronic escitalopram both of which could exacerbate. Telemetry reveals episodes of asymptomatic bradycardia into high 40- low 50's. Denies any symptoms at any time related to hypotension or poor perfusion. Suspect that anesthesia and QT prolonging medications led to sinus pause and no escape beat occurred before SA node again re-paced heart. Given occurrence only in surgery with no symptoms recommend outpatient follow up with cardiology. I did speak with patient and his about possibly stopping or reducing escitalopram and trazodone, which prolong QTC. At this point, they do not want to reduce or stop medications. They would like to follow up with PCP to discuss. Also recommend outpatient cardiology exam. The patient is asymptomatic and had no acute events overnight. Departure Latest Vital Signs Vital Signs 12/30/18 08:50 Temp 97.8 Pulse 58 Resp 16 B/P (MAP) 124/61 (82) Pulse Ox 95 O2 Delivery Nasal Cannula O2 Flow Rate 0.5 Weight (Pounds): 175 Weight (Ounces): 4.0 Result Diagram: 12/30/1852712/30/18527 Condition: Improved Discharge: Home, Self Care Discharge Instructions Home Meds Reported Medications Aspirin (ASPIRIN) 325 Mg Tablet, 325 MG PO QDAY, TAB 12/29/18 Isosorbide Mononitrate (ISOSORBIDE MONONITRATE ER) 30 Mg Tab.er.24h, 30 MG PO QDAY 12/29/18 Finasteride (FINASTERIDE) 5 Mg Tablet, 5 MG PO QDAY 12/29/18 Amlodipine Besylate (AMLODIPINE BESYLATE) 2.5 Mg Tablet, 2.5 MG PO QDAY 12/29/18 Meloxicam (MELOXICAM) 15 Mg Tablet, 15 MG PO QDAY WITH FOOD 12/29/18 Nitroglycerin (NITROGLYCERIN) 0.4 Mg Tab.subl, 1 TAB PO PRN for CHEST PAIN DISSOLVE ONE TAB UNDER TONGUE EVERY 5 MINUTES NEEDED FOR CHEST PAIN - UP TO 3 DOSES - CALL 911 IF PAIN PERSISTS 5 MINUTES AFTER FIRST DOSE 12/29/18 Trazodone Hcl (TRAZODONE HCL) 100 Mg Tablet, 200 MG PO QHS 12/29/18 Diclofenac Sodium (Diclofenac Sodium) 1 % Gel..gram., 4 G TOP QID 12/29/18 Duloxetine HCl (Duloxetine HCl) 20 Mg Capsule.dr, 20 MG PO QDAY 12/29/18 Latanoprost (LATANOPROST) 2.5 Ml Drops, 1 DROP OU QPM 12/29/18 Oxybutynin Chloride (DITROPAN XL) 10 Mg Tab.er.24, 10 MG PO QDAY PRN for BLADDER SPASMS, #20 TAB 12/19/18 Hydrocodone Bit/Acetaminophen (NORCO 5-325 TABLET) 1 Each Tablet, 1-2 TAB PO Q6H PRN for PAIN, #30 TAB 12/19/18 Docusate Sodium (COLACE) 100 Mg Capsule, 100 MG PO BID, #30 CAPSULE 12/19/18 Escitalopram Oxalate (LEXAPRO) 20 Mg Tablet, 20 MG PO QAM, TAB 12/16/18 Atorvastatin Calcium (LIPITOR) 20 Mg Tablet, 1 TAB PO HS, TAB 12/16/18 Tamsulosin Hcl (TAMSULOSIN HCL) 0.4 Mg Cap.er.24h, 0.4 MG PO HS, CAP 12/16/18 Losartan Potassium (LOSARTAN POTASSIUM) 100 Mg Tablet, 100 MG PO HS 12/16/18 Discontinued Reported Medications Phenazopyridine Hcl (PHENAZOPYRIDINE HCL) 200 Mg Tablet, 200 MG PO TID PRN for DISCOMFORT, #30 TAB 12/19/18 Isosorbide Dinitrate (ISOSORBIDE DINITRATE) 30 Mg Tablet, 30 MG PO QAM 12/16/18 Amlodipine Besylate (AMLODIPINE BESYLATE) 5 Mg Tablet, 2.5 MG PO NOON, TAB 09/28/18 Aspirin (ASPIR 81) 81 Mg Tablet.dr, 1 TAB PO QDAY, TAB 09/11/15 Diet: Regular Activity: As Tolerated Special Instructions: Follow up with Dr. Grey on 01/11 at 4pm. Call the office for any questions at [phone]. Follow up with PCP within one week to discuss escitalopram and trazodone as possible causes for prolonged QTC. Follow up with Cardiology As Soon As Possible. Copies to: ; Venous Thromboembolism Antithrombotics Is Pt On Any Antithrombotics?: Yes KEITH STINSON Dec 30, 2018 10:00
== END 2018-12-30 12:44 | disposition home or self-care (01) | DRG 316 ==
LOC: OR 01:34 → ICU 10:15 → MED 16:00
PROVIDERS: ADMIT Internal Medicine; ATTEND Internal Medicine
PROC: 0TF6XZZ Fragmentation in Right Ureter, External Approach (ICD-10-PCS; principal; 2018-12-29 07:45)
DX: I97.711 Intraoperative cardiac arrest during other surgery (principal); N20.0 Calculus of kidney; I12.9 Hypertensive chronic kidney disease with stage 1 through stage 4 chronic kidney disease, or unspecified chronic kidney disease; N40.0 Benign prostatic hyperplasia without lower urinary tract symptoms; I25.10 Atherosclerotic heart disease of native coronary artery without angina pectoris; N18.9 Chronic kidney disease, unspecified; E78.5 Hyperlipidemia, unspecified; R73.03 Prediabetes; J44.9 Chronic obstructive pulmonary disease, unspecified; Y92.234 Operating room of hospital as the place of occurrence of the external cause; Y83.8 Other surgical procedures as the cause of abnormal reaction of the patient, or of later complication, without mention of misadventure at the time of the procedure; Y73.3 Surgical instruments, materials and gastroenterology and urology devices (including sutures) associated with adverse incidents; Z88.8 Allergy status to other drugs, medicaments and biological substances; Z87.891 Personal history of nicotine dependence; Z96.643 Presence of artificial hip joint, bilateral; Z90.49 Acquired absence of other specified parts of digestive tract
CPT/HCPCS: 36415; 74018; 81001; 82040; 82247; 82310; 82374; 82435; 82565; 82947; 83735; 84075; 84100; 84132; 84155; 84295; 84450; 84460; 84484; 84520; 85025; 87088; 93306; J0690; J1100; J1650; J2001; J2405; J2704; J3010; J7050; Q9966

== ENCOUNTER → 2019-02-06 | Outpatient (CLI) | payer MEDICARE, OTHER ==
[~2019-02-06] MED LIST changes: +AMLO2.5T78 PO; +ASPI-757 PO; +CYAN500T38 PO; +DICL100G7 TOP; +DULO20CA3 PO; +FINA5TAB67 PO; +ISOS30TA54 PO; +LATA2.5D7 OU; +NITR0.4T3 PO; +TRAZ100T31 PO
[2019-02-06 11:48] LABS: PLATELET COUNT, AUTOMATED 148 K/uL (150-450)
== END ==
LOC: LAB 11:10
PROVIDERS: ATTEND Emergency Medicine
DX: D64.9 Anemia, unspecified (principal); E78.5 Hyperlipidemia, unspecified; I10 Essential (primary) hypertension
CPT/HCPCS: 36415; 81001; 82040; 82247; 82310; 82374; 82435; 82465; 82565; 82607; 82746; 82947; 83036; 83540; 83550; 83718; 84075; 84132; 84155; 84295; 84443; 84450; 84460; 84478; 84520; 85025

== ENCOUNTER 2019-05-30 09:13 | Emergency (ER) | payer MEDICARE, OTHER ==
[~2019-05-30 09:13] MED LIST changes: +ATOR40TA69 PO; +CHOL10005 PO; -CYAN500T38 PO; +CYAN500T39 PO; +MELA3TAB31 PO
--- NOTE | 2019-05-30 09:15 | ER Report ---
History and Physical Time Seen By MD: 09:11 HPI/ROS CHIEF COMPLAINT: Fall HISTORY OF PRESENT ILLNESS: Patient is an 83-year-old male here with complaints of fall, small abrasion to the parietal scalp while walking into the hospital today. Patient describes it as a mechanical fall. Denies new neurological deficits, weakness, neck pain. Patient is alert and oriented at time of arrival. He did have a recent intracranial hemorrhage while skiing several months ago. REVIEW OF SYSTEMS: Constitutional: No fever, no chills. Eyes: No discharge. ENT: No sore throat. Cardiovascular: No chest pain, no palpitations. Respiratory: No cough, no shortness of breath. Gastrointestinal: No abdominal pain, no vomiting. Genitourinary: No hematuria. Musculoskeletal: No back pain. Skin: + Abrasions the left parietal scalp Neurological: No headache. Allergies: Coded Allergies: lisinopril (Verified Allergy, Mild, COUGH, 05/30/19) Home Meds Reported Medications Metoprolol Succinate (METOPROLOL SUCCINATE) 25 Mg Tab.er.24h, 1 TAB PO QDAY, TAB 05/30/19 Cholecalciferol (Vitamin D3) (VITAMIN D3) 1,000 Unit Tablet, 1000 UNIT PO DAILY, TAB 02/10/19 Atorvastatin Calcium (ATORVASTATIN CALCIUM) 40 Mg Tablet, 0.5 TAB PO QDAY, TAB 02/10/19 Cyanocobalamin (Vitamin B-12) (VITAMIN B-12) Unknown Strength Tablet, PO 02/08/19 Isosorbide Mononitrate (ISOSORBIDE MONONITRATE ER) 30 Mg Tab.er.24h, 30 MG PO QDAY 12/29/18 Finasteride (FINASTERIDE) 5 Mg Tablet, 5 MG PO QDAY 12/29/18 Amlodipine Besylate (AMLODIPINE BESYLATE) 2.5 Mg Tablet, 2.5 MG PO BID 12/29/18 Nitroglycerin (NITROGLYCERIN) 0.4 Mg Tab.subl, 1 TAB PO PRN for CHEST PAIN DISSOLVE ONE TAB UNDER TONGUE EVERY 5 MINUTES NEEDED FOR CHEST PAIN - UP TO 3 DOSES - CALL 911 IF PAIN PERSISTS 5 MINUTES AFTER FIRST DOSE 12/29/18 Trazodone Hcl (TRAZODONE HCL) 100 Mg Tablet, 200 MG PO QHS 12/29/18 Diclofenac Sodium (Diclofenac Sodium) 1 % Gel..gram., 4 G TOP QID 12/29/18 Latanoprost (LATANOPROST) 2.5 Ml Drops, 1 DROP OU QPM 12/29/18 Docusate Sodium (COLACE) 100 Mg Capsule, 100 MG PO BID, #30 CAPSULE 12/19/18 Escitalopram Oxalate (LEXAPRO) 20 Mg Tablet, 20 MG PO QAM, TAB 12/16/18 Tamsulosin Hcl (TAMSULOSIN HCL) 0.4 Mg Cap.er.24h, 0.4 MG PO HS, CAP 12/16/18 Discontinued Reported Medications Melatonin (MELATONIN) 3 Mg Tablet, 3 MG PO DAILY 02/10/19 Aspirin (ASPIRIN) 325 Mg Tablet, 325 MG PO QDAY, TAB 12/29/18 Duloxetine HCl (Duloxetine HCl) 20 Mg Capsule.dr, 20 MG PO QDAY 12/29/18 Oxybutynin Chloride (DITROPAN XL) 10 Mg Tab.er.24, 10 MG PO QDAY PRN for BLADDER SPASMS, #20 TAB 12/19/18 Losartan Potassium (LOSARTAN POTASSIUM) 100 Mg Tablet, 100 MG PO HS 12/16/18 Hx Smoking: Yes (SMOKED 1PPD FOR 14 YRS, QUIT 1964) Smoking Status: Former Smoker Exposure to Second Hand Smoke?: No Hx Substance Use Disorder: No Hx Alcohol Use: Yes Constitutional Vital Sign - Last 24 Hours 05/30/19 05/30/19 05/30/19 05/30/19 09:16 09:16 09:45 10:00 Temp 98.0 Pulse 50 46 Resp 20 B/P (MAP) 119/67 (84) 134/56 103/60 (74) Pulse Ox 91 89 91 O2 Delivery Room Air 05/30/19 05/30/19 05/30/19 05/30/19 10:15 10:30 10:45 11:00 Pulse 47 44 47 48 B/P (MAP) 102/58 (73) 106/57 (73) Pulse Ox 93 90 89 91 Physical Exam General Appearance: The patient is alert, has no immediate need for airway protection and no signs of toxicity. No acute distress Eyes: Pupils equal and round no pallor or injection. ENT, Mouth: Mucous membranes are moist. Respiratory: There are no retractions, lungs are clear to auscultation. Cardiovascular: Regular rate and rhythm. Gastrointestinal: Abdomen is soft and non tender, no masses, bowel sounds normal. Neurological: No focal neurological deficits, cranial nerves intact, pupils equal and reactive Skin: Warm and dry, small abrasion to the left parietal scalp Musculoskeletal: Neck is supple non tender. Extremities are nontender, nonswollen and have full range of motion. DIFFERENTIAL DIAGNOSIS: After history and physical exam differential diagnosis was considered for intracranial bleed, contusion, abrasion, concussion Medical Decision Making EKG/Imaging Imaging Please see official radiology report ED Course/Re-evaluation ED Course Patient is an 83-year-old male here status post fall in the parking lot. Patient has prior history of subdural hemorrhages. CT imaging was completed upon arrival however since there is no prior imaging study to compare to, attempts at obtaining records from [facility] were completed. Today's CT imaging showed improvement of prior subdural hemorrhage. I updated the patient regarding these findings. Recommended close PCP follow-up. Return precautions provided. Decision to Disposition Date: May 30, 2019 Decision to Disposition Time: 12:59 Depart Departure Latest Vital Signs Vital Signs Date Time Temp Pulse Resp B/P (MAP) Pulse Ox O2 Delivery O2 Flow Rate FiO2 05/30/19 11:00 48 106/57 (73) 91 05/30/19 09:16 98.0 20 Room Air Impression: Primary Impression: Fall Additional Impression: Abrasion Condition: Improved Disposition: HOME OR SELF-CARE Patient Instructions: Concussion (ED) Additional Instructions: No acute intracranial hemorrhage was identified on CT imaging. Please follow-up with your primary care provider in the next 3-5 days for repeat evaluation. Please return promptly if she develop worsening headache, visual changes, numbness, motor weakness. Problem Qualifiers GAGAN LORENZO DO May 30, 2019 09:15
[2019-05-30] MEDS ORDERED: METO25TA23 PO (09:25)
[2019-05-30] MEDS ORDERED: DIPHTH/TETANUS/ACEL. PERTUSSIS IM ONLY ONE (09:45)
--- NOTE | 2019-05-30 10:30 | RADIOLOGY IMAGING REPORT ---
FACILITY: [facility] - [place] PATIENT NAME: Garcia Stevens : 1935 MR: [id number] V: [id number] EXAM DATE: ORDERING PHYSICIAN: GAGAN LORENZO TECHNOLOGIST: Location: [facility] [place] Patient: Garcia Stevens : 1935 Visit/Account:[id number] Date of Sevice: 05/30/2019 ADDENDUM #1 ADDENDUM: A comparison head CT from 03/06/2019 is now available. Subdural hematomas are decreased in size comp ared with 03/06/2019. Dural thickening and epidural fluid underlying the craniotomy is also decrease d. Results were called to GAGAN LORENZO at 05/30/2019 12:50 PM. Report Dictated By: Bob Garcia MD at 05/30/2019 12:48 PM Report E-Signed By: Bob Garcia MD at 05/30/2019 12:53 PM ORIGINAL REPORT EXAMINATION: CT Head without intravenous contrast CT Cervical spine without intravenous contrast HISTORY: Trauma. TECHNIQUE: Head: Axial images were obtained from the skull base to the vertex without intravenous contrast. Sa gittal and coronal reformatted images are also submitted. Cervical spine: Axial images were obtained from the skull base through the upper thoracic spine with out IV contrast administration. Coronal and sagittal reformatted images were obtained from the axial source data. One of the following dose optimization techniques was utilized in the performance of this exam: Autom ated exposure control; adjustment of the mA and/or kV according to the patient's size; or use of an i terative reconstruction technique. Specific details can be referenced in the facility's radiology C T exam operational policy. COMPARISON: None available. FINDINGS: HEAD: Brain volume: Mild to moderate generalized brain parenchymal volume loss. Ventricles: Negative. Acute ischemic changes: None. Hemorrhage: Right frontal subdural hematoma measuring up to 9 mm in thickness, likely subacute or ch ronic. Left convexity subdural hematoma measuring up to 7 mm in thickness, predominantly hypodense w ith a small area of hyperdensity adjacent to the anterior lateral left frontal lobe. Masses / edema: No significant mass effect. Leslie-white: Encephalomalacia/gliosis in the anterior right frontal lobe. White matter: Negative. Vessels: Calcified plaque in the carotid siphons and right vertebral artery. Normal density in the dural venous sinuses. Extra-axial: Dural thickening and epidural fluid underlying the craniotomy measuring 6 mm in thickne ss. Calvarium / skull base: Right craniotomy. Left frontal and parietal rhoda holes. Visualized sinuses / orbits: Small cyst or polyp in the right maxillary sinus. CERVICAL SPINE: Alignment: 5 mm of anterior listhesis of C6 over C7. 4 mm of anterior listhesis of C7 over T1. Cranio-cervical junction: Moderate degenerative changes with normal alignment. Vertebral bodies: Degenerative endplate changes at a few levels. Otherwise negative. Posterior elements: Multilevel facet hypertrophy. Solid fusion of the C5-C6 facet joints. Hardware: None. Disc Spaces: Multilevel degenerative disc disease. Solid fusion of C5-C6. Soft tissues: No prevertebral soft tissue swelling. Visualized upper chest: Negative. IMPRESSION: 1. Bilateral convexity hypodense subdural hematomas. These are probably subacute or chronic. Howev er, there may be a small amount of acute subdural hemorrhage adjacent to the anterior lateral left fr ontal lobe. No significant mass effect. Comparison with prior brain imaging is recommended to make sure this is stable. 2. Right craniotomy with mild underlying dural thickening and epidural fluid measuring up to 6 mm in thickness. Comparison with prior brain imaging is recommended to make sure this is stable. 3. Otherwise no acute intracranial abnormality. Encephalomalacia/gliosis in the anterior right fron toby lobe. 4. No acute cervical spine fracture. Multilevel degenerative disc disease and facet hypertrophy at with grade 1 anterior li thesis of C6 over C7 and C7 over T1 and solid fusion of C5-C6. Results were called to GAGAN LORENZO at 05/30/2019 10:16 AM. Report Dictated By: Bob Garcia MD at 05/30/2019 10:03 AMReport E-Signed By: Bob Garcia MD at 05/30/2019 10:20 AM WSN:[id number]
--- NOTE | 2019-05-30 10:31 | RADIOLOGY IMAGING REPORT ---
FACILITY: [facility] - [place] PATIENT NAME: Garcia Stevens : 1935 MR: [id number] V: [id number] EXAM DATE: ORDERING PHYSICIAN: GAGAN LORENZO TECHNOLOGIST: Location: [facility] [place] Patient: Garcia Stevens : 1935 Visit/Account:[id number] Date of Sevice: 05/30/2019 ADDENDUM #1 ADDENDUM: A comparison head CT from 03/06/2019 is now available. Subdural hematomas are decreased in size comp ared with 03/06/2019. Dural thickening and epidural fluid underlying the craniotomy is also decrease d. Results were called to GAGAN LORENZO at 05/30/2019 12:50 PM. Report Dictated By: Bob Garcia MD at 05/30/2019 12:48 PM Report E-Signed By: Bob Garcia MD at 05/30/2019 12:53 PM ORIGINAL REPORT EXAMINATION: CT Head without intravenous contrast CT Cervical spine without intravenous contrast HISTORY: Trauma. TECHNIQUE: Head: Axial images were obtained from the skull base to the vertex without intravenous contrast. Sa gittal and coronal reformatted images are also submitted. Cervical spine: Axial images were obtained from the skull base through the upper thoracic spine with out IV contrast administration. Coronal and sagittal reformatted images were obtained from the axial source data. One of the following dose optimization techniques was utilized in the performance of this exam: Autom ated exposure control; adjustment of the mA and/or kV according to the patient's size; or use of an i terative reconstruction technique. Specific details can be referenced in the facility's radiology C T exam operational policy. COMPARISON: None available. FINDINGS: HEAD: Brain volume: Mild to moderate generalized brain parenchymal volume loss. Ventricles: Negative. Acute ischemic changes: None. Hemorrhage: Right frontal subdural hematoma measuring up to 9 mm in thickness, likely subacute or ch ronic. Left convexity subdural hematoma measuring up to 7 mm in thickness, predominantly hypodense w ith a small area of hyperdensity adjacent to the anterior lateral left frontal lobe. Masses / edema: No significant mass effect. Leslie-white: Encephalomalacia/gliosis in the anterior right frontal lobe. White matter: Negative. Vessels: Calcified plaque in the carotid siphons and right vertebral artery. Normal density in the dural venous sinuses. Extra-axial: Dural thickening and epidural fluid underlying the craniotomy measuring 6 mm in thickne ss. Calvarium / skull base: Right craniotomy. Left frontal and parietal rhoda holes. Visualized sinuses / orbits: Small cyst or polyp in the right maxillary sinus. CERVICAL SPINE: Alignment: 5 mm of anterior listhesis of C6 over C7. 4 mm of anterior listhesis of C7 over T1. Cranio-cervical junction: Moderate degenerative changes with normal alignment. Vertebral bodies: Degenerative endplate changes at a few levels. Otherwise negative. Posterior elements: Multilevel facet hypertrophy. Solid fusion of the C5-C6 facet joints. Hardware: None. Disc Spaces: Multilevel degenerative disc disease. Solid fusion of C5-C6. Soft tissues: No prevertebral soft tissue swelling. Visualized upper chest: Negative. IMPRESSION: 1. Bilateral convexity hypodense subdural hematomas. These are probably subacute or chronic. Howev er, there may be a small amount of acute subdural hemorrhage adjacent to the anterior lateral left fr ontal lobe. No significant mass effect. Comparison with prior brain imaging is recommended to make sure this is stable. 2. Right craniotomy with mild underlying dural thickening and epidural fluid measuring up to 6 mm in thickness. Comparison with prior brain imaging is recommended to make sure this is stable. 3. Otherwise no acute intracranial abnormality. Encephalomalacia/gliosis in the anterior right fron toby lobe. 4. No acute cervical spine fracture. Multilevel degenerative disc disease and facet hypertrophy at with grade 1 anterior li thesis of C6 over C7 and C7 over T1 and solid fusion of C5-C6. Results were called to GAGAN LORENZO at 05/30/2019 10:16 AM. Report Dictated By: Bob Garcia MD at 05/30/2019 10:03 AMReport E-Signed By: Bob Garcia MD at 05/30/2019 10:20 AM WSN:[id number]
[2019-05-30 13:00] VITALS: BP 113/61
== END 2019-05-30 13:15 | disposition home or self-care (01) ==
LOC: ER 09:16
DX: S00.01XA Abrasion of scalp, initial encounter (principal); W18.30XA Fall on same level, unspecified, initial encounter; S06.5X9A Traumatic subdural hemorrhage with loss of consciousness of unspecified duration, initial encounter
CPT/HCPCS: 70450; 72125; 90471; 90715; 99284